=== PATIENT | female | born 1965 | race Caucasian/White ===

== ENCOUNTER 2017-03-09 20:01 | Emergency (ER) | payer MEDICAID ==
[2017-03-09 20:12] VITALS: BP 112/90
[2017-03-09] MEDS ORDERED: Levofloxacin 250 MG Tab PO ONE (20:32)
--- NOTE | 2017-03-09 20:37 | EDM.PDOC ---
[id number]: POSS UTI OR STONE Time Seen by Provider: 03/09/17 20:21 Source of Information: Reports: Patient History Limitations: Reports: No Limitations - History of Present Illness INITIAL COMMENTS - FREE TEXT/NARRATIVE: 52 y/o F with hx renal cancer s/p L nephrectomy and also hx UTI's presents with dysuria x 1-2 days. States she always has hematuria, no change. No fever. No flank pain. No vomiting or abdominal pain. Has frequency and urgency. No unusual vaginal discharge. NO additional complaint. Last UTI was a year ago. Bladder Pain Score (Numeric/FACES): 9 - Related Data Allergies Allergy/AdvReac Type Severity Reaction Status Date / Time morphine Allergy Other Verified 08/20/15 00:12 acetaminophen [From Percocet] AdvReac Nausea Verified 08/20/15 00:12 hydrochlorothiazide AdvReac Nausea Verified 08/20/15 00:12 oxycodone HCl [From Percocet] AdvReac Nausea Verified 08/20/15 00:12 Sulfa (Sulfonamide AdvReac Mouth Sores Verified 08/20/15 00:12 Antibiotics) varenicline tartrate AdvReac Change Verified 11/05/15 20:09 [From Chantix] Mental Status Home Meds: Home Meds Acetaminophen [Tylenol Arthritis Pain] 650 mg PO BID 11/05/15 [History] Amitriptyline [Elavil] 50 mg PO BEDTIME 11/05/15 [History] Atenolol 25 mg PO QPM 11/05/15 [History] LORazepam [Ativan] 1 mg PO BEDTIME 11/05/15 [History] Nitroglycerin [Nitrostat] 0.4 mg SL ASDIRECTED 11/05/15 [History] Topiramate [Topamax] 50 mg PO DAILY 11/05/15 [History] Topiramate [Topamax] 100 mg PO BEDTIME 11/05/15 [History] Venlafaxine [Effexor] 300 mg PO BEDTIME 11/05/15 [History] atorvaSTATin [Lipitor] 40 mg PO BEDTIME 11/05/15 [History] Albuterol [Ventolin HFA] 8 gm INH Q4H PRN 11/06/15 [History] Aspirin [Ecotrin] 81 mg PO DAILY 11/06/15 [History] Budesonide/Formoterol [Symbicort 80-4.5 MCG] 2 puff INH BID 11/06/15 [History] Ciprofloxacin HCl/Dexameth [Ciprodex Otic Suspension] 5 drop TOP BID 11/06/15 [ History] Cyanocobalamin (Vitamin B-12) [B-12] 1,000 mcg PO DAILY 11/06/15 [History] Diclofenac Sodium [Voltaren 1% Gel] 1 dose TOP BID 11/06/15 [History] Ezetimibe [Zetia] 10 mg PO DAILY 11/06/15 [History] Fluticasone Propionate [Flonase Allergy Relief] 2 sprays NASBOTH BID 11/06/15 [ History] Linaclotide [Linzess] 145 mcg PO DAILY 11/06/15 [History] Lisinopril 10 mg PO BEDTIME 11/06/15 [History] Mupirocin Oint [Bactroban Oint] 1 unit TOP TID 11/06/15 [History] Omeprazole 40 mg PO BEDTIME 11/06/15 [History] Tiotropium [Spiriva HandiHaler] 18 mcg INH DAILY 11/06/15 [History] guaiFEN/Phenyleph/Acetaminophn [Mucinex Sinus-Max Severe Cplt] 1 each PO BID [History] traZODone 75 mg PO BEDTIME 11/06/15 [History] Ciprofloxacin [Ciprofloxacin HCl] 250 mg PO BID #14 tablet 03/09/17 [Rx] Phenazopyridine [Pyridium] 100 mg PO TID PRN #9 tablet 03/09/17 [Rx] Past Medical History HEENT History: Reports: Sinusitis Other HEENT History: 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 Cardiovascular History: Reports: Hypertension Other Cardiovascular History: mitral valve prolapse Respiratory History: Reports: Bronchitis, Recurrent, COPD Other Respiratory History: current smoker 2ppd Gastrointestinal History: Reports: Colon Polyp, GERD, Other (See Below) Other Gastrointestinal History: Barretts esophogus Genitourinary History: Reports: Other (See Below) Other Genitourinary History: renal insuffiency [employer] History: Reports: Musculoskeletal History: Reports: Osteoarthritis Psychiatric History: Reports: Bipolar Other Psychiatric History: disassociate disorder Endocrine/Metabolic History: Reports: Vitamin D Deficiency Other Oncologic History: clear cell carcinoma of the left kidney - Infectious Disease History Infectious Disease History: Reports: Chicken Pox - Past Surgical History HEENT Surgical History: Reports: Naso-Sinus Surgery, Other (See Below) Female Surgical History: Reports: Cervical Conization, Cervical Cryotherapy, Hysterectomy Social & Family History - Family History Family Medical History: Noncontributory HEENT: Reports: Cataract Cardiac: Reports: Other (See Below) Other Cardiac Family History: several with heart attachs, one with mitral valve replacement and pacemaker Respiratory: Reports: Other (See Below) Other Respiratory Family Hisory: emphysema GI: Reports: None Musculoskeletal: Reports: Gout Neurological: Reports: Dementia Psychiatric: Reports: ADHD, Bipolar Endocrine/Metabolic: Reports: Diabetes, type II, Hyperthyroidism Oncologic: Reports: Other (See Below) Other Oncologic Family History: pt states several family members have had cancer unsure of what kind - Tobacco Use Smoking Status *Q: Current Every Day Smoker Years of Tobacco use: 35 Packs/Tins Daily: 2 Second Hand Smoke Exposure: Yes - Caffeine Use Caffeine Use: Reports: Coffee, Soda - Recreational Drug Use Recreational Drug Use: No ED ROS GENERAL - Review of Systems Review Of Systems: See Below Constitutional: Denies: Fever Respiratory: Reports: No Symptoms Cardiovascular: Reports: No Symptoms GI/Abdominal: Denies: Abdominal Pain : Reports: Dysuria. Denies: Flank Pain ED EXAM, RENAL/ - Physical Exam Exam: See Below Exam Limited By: No Limitations General Appearance: Alert, WD/WN, No Apparent Distress Throat/Mouth: Normal Voice Head: Atraumatic, Normocephalic Neck: Normal Inspection, Supple Respiratory/Chest: No Respiratory Distress GI/Abdominal: Soft, Non-Tender, No Distention. No: Rebound Back Exam: No: CVA Tenderness (L), CVA Tenderness (R) Neurological: Alert, Oriented, Normal Cognition Psychiatric: Normal Affect, Normal Mood Skin Exam: Warm, Dry, Intact, Normal Color Course - Vital Signs Last Recorded V/S: Last Vital Signs Temp 36.2 C 03/09/17 20:11 Pulse 84 03/09/17 20:11 Resp 20 03/09/17 20:11 BP 112/90 03/09/17 20:11 Pulse Ox 96 03/09/17 20:11 - Orders/Labs/Meds Orders: Active Orders 24 hr Category Date Time Status UA W/MICROSCOPIC [URIN] Stat Lab 03/09/17 20:30 Ordered Phenazopyridine [Urinary Pain Relief] Med 03/10/17 20:34 Once 95 mg PO STAT ONE Medication Orders Phenazopyridine HCl (Urinary Pain Relief) 95 mg PO STAT ONE Stop: 03/10/17 20:35 Meds: Medications Generic Name Dose Route Start Last Admin Trade Name Freq PRN Reason Stop Dose Admin Phenazopyridine HCl 95 mg 03/10/17 20:34 Urinary Pain Relief PO 03/10/17 20:35 STAT ONE Discontinued Medications Generic Name Dose Route Start Last Admin Trade Name Freq PRN Reason Stop Dose Admin Levofloxacin 750 mg 03/09/17 20:32 Levaquin PO 03/09/17 20:33 ONETIME ONE Departure - Departure Time of Disposition: 20:34 Disposition: Home, Self-Care 01 Clinical Impression: UTI, Urinary tract infectious disease - Discharge Information Prescriptions: Ciprofloxacin [Ciprofloxacin HCl] 250 mg PO BID #14 tablet Phenazopyridine [Pyridium] 100 mg PO TID PRN #9 tablet PRN Reason: urinary discomfort Instructions: Urinary Tract Infection, Adult, [id number] Referrals: Marianne France MD [Primary Care Provider] - Forms: ED Department Discharge Additional Instructions: 1. Take ciprofloxacin as prescribed. Next dose should be tomorrow evening - we gave you a dose of levaquin, a related antibiotic, that will last for 24 hours 2. Take pyridium as needed for urinary discomfort 3. Follow up with your primary doctor this week if not improving 4. Return to the ED if you have fever, flank pain, vomiting, abdominal pain, or any other concerning symptoms - My Orders Last 24 Hours: My Active Orders 03/09/17 20:30 UA W/MICROSCOPIC [URIN] Stat 03/10/17 20:34 Phenazopyridine [Urinary Pain Relief] 95 mg PO STAT ONE - Assessment/Plan Last 24 Hours: My Active Orders 03/09/17 20:30 UA W/MICROSCOPIC [URIN] Stat 03/10/17 20:34 Phenazopyridine [Urinary Pain Relief] 95 mg PO STAT ONE
[2017-03-09] MEDS ORDERED: Phenazopyridine 95 MG Tab ONE (20:47)
[2017-03-10] MEDS ORDERED: Phenazopyridine 95 MG Tab PO ONE (20:34)
== END 2017-03-09 20:51 | disposition home or self-care (01) ==
LOC: JD.ED 20:01
DX: N39.0 Urinary tract infection, site not specified (principal); I10 Essential (primary) hypertension; M19.90 Unspecified osteoarthritis, unspecified site; K21.9 Gastro-esophageal reflux disease without esophagitis; F17.210 Nicotine dependence, cigarettes, uncomplicated; Z85.528 Personal history of other malignant neoplasm of kidney; Z90.710 Acquired absence of both cervix and uterus; Z98.890 Other specified postprocedural states; Z79.82 Long term (current) use of aspirin; Z79.899 Other long term (current) drug therapy; Z88.2 Allergy status to sulfonamides; Z88.5 Allergy status to narcotic agent; Z88.6 Allergy status to analgesic agent; Z88.8 Allergy status to other drugs, medicaments and biological substances
CPT/HCPCS: 81001; 99283; A9270

== ENCOUNTER 2018-08-30 17:08 | Emergency (ER) | payer MEDICAID ==
[2018-08-30 17:24] VITALS: BP 138/81
[2018-08-30] MEDS ORDERED: Acetaminophen/HYDROcodone 325-5 MG Tab PO ONE (17:33)
[2018-08-30] MEDS ORDERED: Amoxicillin 500 MG Cap PO ONE (18:13)
--- NOTE | 2018-08-30 18:17 | EDM.PDOC ---
ED HPI GENERAL MEDICAL PROBLEM - General Chief Complaint: ENT Problem Stated Complaint: DENTAL COMPLAINT Time Seen by Provider: 08/30/18 17:26 Source of Information: Reports: Patient, RN Notes Reviewed - History of Present Illness INITIAL COMMENTS - FREE TEXT/NARRATIVE: 53-year-old lady comes in with severe dental pain. States that her left upper premolars have been giving her trouble for a long time but have become much more painful the last few days. Last night in particular was very bad. She's been taking Tylenol but not getting good relief. She only has one kidney so has been advised not to take anti-inflammatories. Her appointment for dental care is a ways off. No fever chills or visible swelling. Left Upper Oral/Mouth Pain Score (Numeric/FACES): 9 - Related Data Allergies Allergy/AdvReac Type Severity Reaction Status Date / Time morphine Allergy Other Verified 08/30/18 17:15 acetaminophen [From Percocet] AdvReac Nausea Verified 08/30/18 17:15 hydrochlorothiazide AdvReac Nausea Verified 08/30/18 17:15 oxycodone HCl [From Percocet] AdvReac Nausea Verified 08/30/18 17:15 Sulfa (Sulfonamide AdvReac Mouth Sores Verified 08/30/18 17:15 Antibiotics) varenicline tartrate AdvReac Change Verified 08/30/18 17:15 [From Chantix] Mental Status Home Meds: Home Meds Acetaminophen [Tylenol Arthritis Pain] 650 mg PO BID 11/05/15 [History] Amitriptyline [Elavil] 50 mg PO BEDTIME 11/05/15 [History] Atenolol 25 mg PO QPM 11/05/15 [History] LORazepam [Ativan] 1 mg PO BEDTIME 11/05/15 [History] Nitroglycerin [Nitrostat] 0.4 mg SL ASDIRECTED 11/05/15 [History] Topiramate [Topamax] 50 mg PO DAILY 11/05/15 [History] Topiramate [Topamax] 100 mg PO BEDTIME 11/05/15 [History] atorvaSTATin [Lipitor] 40 mg PO BEDTIME 11/05/15 [History] Albuterol [Ventolin HFA] 8 gm INH Q4H PRN 11/06/15 [History] Aspirin [Ecotrin] 81 mg PO DAILY 11/06/15 [History] Budesonide/Formoterol [Symbicort 80-4.5 MCG] 2 puff INH BID 11/06/15 [History] Ciprofloxacin HCl/Dexameth [Ciprodex Otic Suspension] 5 drop TOP BID 11/06/15 [ History] Cyanocobalamin (Vitamin B-12) [B-12] 1,000 mcg PO DAILY 11/06/15 [History] Diclofenac Sodium [Voltaren 1% Gel] 1 dose TOP BID 11/06/15 [History] Ezetimibe [Zetia] 10 mg PO DAILY 11/06/15 [History] Fluticasone Propionate [Flonase Allergy Relief] 2 sprays NASBOTH BID 11/06/15 [ History] Linaclotide [Linzess] 145 mcg PO DAILY 11/06/15 [History] Lisinopril 10 mg PO BEDTIME 11/06/15 [History] Mupirocin Oint [Bactroban Oint] 1 unit TOP TID 11/06/15 [History] Omeprazole 40 mg PO BEDTIME 11/06/15 [History] Tiotropium [Spiriva HandiHaler] 18 mcg INH DAILY 11/06/15 [History] guaiFEN/Phenyleph/Acetaminophn [Mucinex Sinus-Max Severe Cplt] 1 each PO BID [History] traZODone 75 mg PO BEDTIME 11/06/15 [History] Ciprofloxacin [Ciprofloxacin HCl] 250 mg PO BID #14 tablet 03/09/17 [Rx] Hydrocodone/Acetaminophen [[place] 5-325 Tablet] 1 each PO Q8HR PRN #14 tablet 08/06 [Rx] Past Medical History HEENT History: Reports: Sinusitis Other HEENT History: 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 Cardiovascular History: Reports: Hypertension Other Cardiovascular History: mitral valve prolapse Respiratory History: Reports: Bronchitis, Recurrent, COPD Other Respiratory History: current smoker 2ppd Gastrointestinal History: Reports: Colon Polyp, GERD, Other (See Below) Other Gastrointestinal History: Barretts esophogus Genitourinary History: Reports: Other (See Below) Other Genitourinary History: renal insuffiency [employer] History: Reports: Musculoskeletal History: Reports: Osteoarthritis Psychiatric History: Reports: Bipolar Other Psychiatric History: disassociate disorder Endocrine/Metabolic History: Reports: Vitamin D Deficiency Other Oncologic History: clear cell carcinoma of the left kidney - Infectious Disease History Infectious Disease History: Reports: Chicken Pox - Past Surgical History HEENT Surgical History: Reports: Naso-Sinus Surgery, Other (See Below) Female Surgical History: Reports: Cervical Conization, Cervical Cryotherapy, Hysterectomy Social & Family History - Family History Family Medical History: Noncontributory HEENT: Reports: Cataract Cardiac: Reports: Other (See Below) Other Cardiac Family History: several with heart attachs, one with mitral valve replacement and pacemaker Respiratory: Reports: Other (See Below) Other Respiratory Family Hisory: emphysema GI: Reports: None Musculoskeletal: Reports: Gout Neurological: Reports: Dementia Psychiatric: Reports: ADHD, Bipolar Endocrine/Metabolic: Reports: Diabetes, type II, Hyperthyroidism Oncologic: Reports: Other (See Below) Other Oncologic Family History: pt states several family members have had cancer unsure of what kind - Tobacco Use Smoking Status *Q: Current Every Day Smoker Years of Tobacco use: 30 Packs/Tins Daily: 1 - Caffeine Use Caffeine Use: Reports: Coffee - Recreational Drug Use Recreational Drug Use: No ED ROS ENT - Review of Systems Review Of Systems: See Below Constitutional: Denies: Fever, Chills HEENT: Reports: Dental Pain Respiratory: Denies: Shortness of Breath Cardiovascular: Denies: Chest Pain GI/Abdominal: Denies: Abdominal Pain, Nausea, Vomiting Musculoskeletal: Reports: No Symptoms Skin: Denies: Erythema ED EXAM, ENT - Physical Exam Exam: See Below General Appearance: Alert, Moderate Distress Eye Exam: Bilateral Eye: PERRL Mouth/Throat: Dental Pain (Left upper premolars, no visible gloom swelling) Head: Facial Tenderness (Left-sided). No: Facial Swelling Respiratory/Chest: No Respiratory Distress, Lungs Clear Cardiovascular: Regular Rate, Rhythm Neurological: Alert, Oriented, No Motor/Sensory Deficits Skin: Warm, Dry, Normal Color Course - Vital Signs Last Recorded V/S: Last Vital Signs Temp 99 F 08/30/18 17:15 Pulse 95 08/30/18 17:15 Resp 13 08/30/18 17:15 BP 138/81 08/30/18 17:15 Pulse Ox 96 08/30/18 17:15 - Orders/Labs/Meds Meds: Medications Discontinued Medications Generic Name Dose Route Start Last Admin Trade Name Freq PRN Reason Stop Dose Admin Hydrocodone Bitart/Acetaminophen 1 tab 08/30/18 17:33 08/30/18 17:41 [place] 325-5 Mg PO 08/30/18 17:34 1 tab ONETIME ONE Administration Amoxicillin 1,000 mg 08/30/18 18:13 08/30/18 18:16 Amoxil PO 08/30/18 18:14 1,000 mg ONETIME ONE Administration Departure - Departure Time of Disposition: 18:12 Disposition: Home, Self-Care 01 Condition: Fair Clinical Impression: Pain, dental - Discharge Information Prescriptions: Hydrocodone/Acetaminophen [[place] 5-325 Tablet] 1 each PO Q8HR PRN #14 tablet PRN Reason: Pain Instructions: Dental Implant Surgery, Care After Referrals: Marianne France MD [Primary Care Provider] - Forms: ED Department Discharge Additional Instructions: tylenol every 6-8 hours if and when needed for mild to moderate discomfort or hydrocodone if needed for severe pain, especially at night to help you rest. Amoxicillin 1000 mg twice daily for 1 week. See dentist as planned.
== END 2018-08-30 18:24 | disposition home or self-care (01) ==
LOC: JD.ED 17:08
DX: K08.89 Other specified disorders of teeth and supporting structures (principal); F17.210 Nicotine dependence, cigarettes, uncomplicated; I10 Essential (primary) hypertension; K21.9 Gastro-esophageal reflux disease without esophagitis; F31.9 Bipolar disorder, unspecified; Z79.899 Other long term (current) drug therapy; Z79.82 Long term (current) use of aspirin; Z88.5 Allergy status to narcotic agent; Z88.6 Allergy status to analgesic agent; Z88.2 Allergy status to sulfonamides; Z88.8 Allergy status to other drugs, medicaments and biological substances
CPT/HCPCS: 99283; A9270

== ENCOUNTER 2018-10-16 12:55 | Emergency (ER) | payer MEDICAID ==
[2018-10-16] MEDS ORDERED: Sodium Chloride 0.9% 10 ML Syringe FLUSH PRN (13:24)
[2018-10-16] MEDS ORDERED: Ondansetron 4 MG/2 ML SDV IVPUSH ONE ×2 (13:24→15:05)
[2018-10-16] MEDS ORDERED: Sodium Chloride 0.9% 1,000 ML IV SCH (13:30)
--- NOTE | 2018-10-16 14:11 | EDM.PDOC ---
ED HPI GENERAL MEDICAL PROBLEM - General Chief Complaint: Gastrointestinal Problem Stated Complaint: vomiting,diahrrea, heart palpatations Time Seen by Provider: 10/16/18 13:10 Source of Information: Reports: Patient History Limitations: Reports: No Limitations - History of Present Illness INITIAL COMMENTS - FREE TEXT/NARRATIVE: The patient presents with nausea, vomiting and diarrhea. This started this morning and she cannot keep anything down. She also has some generalized abdominal pain. She has fever and chills. She has been having a cough for the past couple of days. She has no chest pain or shortness of breath. She still has her appendix and gallbladder. She did have a hysterectomy. She also says she was having some palpitations. She has a loop recorder on now. Her doctor is trying to find out what the palpitations are that she is having. Onset: Gradual Duration: Hour(s): Location: Reports: Abdomen Quality: Reports: Other (cramping) Severity: Moderate Improves with: Reports: None Worsens with: Reports: None Associated Symptoms: Reports: Nausea/Vomiting. Denies: Chest Pain, Cough, Fever /Chills, Headaches, Shortness of Breath Abdominal Pain Score (Numeric/FACES): 4 - Related Data Allergies Allergy/AdvReac Type Severity Reaction Status Date / Time morphine Allergy Other Verified 10/16/18 13:12 acetaminophen [From Percocet] AdvReac Nausea Verified 10/16/18 13:12 hydrochlorothiazide AdvReac Nausea Verified 10/16/18 13:12 oxycodone HCl [From Percocet] AdvReac Nausea Verified 10/16/18 13:12 Sulfa (Sulfonamide AdvReac Mouth Sores Verified 10/16/18 13:12 Antibiotics) varenicline tartrate AdvReac Change Verified 10/16/18 13:12 [From Chantix] Mental Status Home Meds: Home Meds Acetaminophen [Tylenol Arthritis Pain] 650 mg PO BID 11/05/15 [History] Amitriptyline [Elavil] 50 mg PO BEDTIME 11/05/15 [History] Atenolol 25 mg PO QPM 11/05/15 [History] LORazepam [Ativan] 1 mg PO BEDTIME 11/05/15 [History] Nitroglycerin [Nitrostat] 0.4 mg SL ASDIRECTED 11/05/15 [History] Topiramate [Topamax] 50 mg PO DAILY 11/05/15 [History] Topiramate [Topamax] 100 mg PO BEDTIME 11/05/15 [History] atorvaSTATin [Lipitor] 40 mg PO BEDTIME 11/05/15 [History] Albuterol [Ventolin HFA] 8 gm INH Q4H PRN 11/06/15 [History] Aspirin [Ecotrin] 81 mg PO DAILY 11/06/15 [History] Budesonide/Formoterol [Symbicort 80-4.5 MCG] 2 puff INH BID 11/06/15 [History] Ciprofloxacin HCl/Dexameth [Ciprodex Otic Suspension] 5 drop TOP BID 11/06/15 [ History] Cyanocobalamin (Vitamin B-12) [B-12] 1,000 mcg PO DAILY 11/06/15 [History] Diclofenac Sodium [Voltaren 1% Gel] 1 dose TOP BID 11/06/15 [History] Ezetimibe [Zetia] 10 mg PO DAILY 11/06/15 [History] Fluticasone Propionate [Flonase Allergy Relief] 2 sprays NASBOTH BID 11/06/15 [ History] Linaclotide [Linzess] 145 mcg PO DAILY 11/06/15 [History] Lisinopril 10 mg PO BEDTIME 11/06/15 [History] Mupirocin Oint [Bactroban Oint] 1 unit TOP TID 11/06/15 [History] Omeprazole 40 mg PO BEDTIME 11/06/15 [History] Tiotropium [Spiriva HandiHaler] 18 mcg INH DAILY 11/06/15 [History] guaiFEN/Phenyleph/Acetaminophn [Mucinex Sinus-Max Severe Cplt] 1 each PO BID [History] traZODone 75 mg PO BEDTIME 11/06/15 [History] Ciprofloxacin [Ciprofloxacin HCl] 250 mg PO BID #14 tablet 03/09/17 [Rx] Hydrocodone/Acetaminophen [[place] 5-325 Tablet] 1 each PO Q8HR PRN #14 tablet 08/06 [Rx] Ondansetron [Zofran ODT] 4 mg PO Q6H PRN #20 tab.dis 10/16/18 [Rx] Ondansetron [Zofran ODT] 4 mg PO Q6H PRN #20 tab.dis 10/16/18 [Rx] Past Medical History HEENT History: Reports: Sinusitis Other HEENT History: 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 Cardiovascular History: Reports: Hypertension Other Cardiovascular History: mitral valve prolapse Respiratory History: Reports: Bronchitis, Recurrent, COPD Other Respiratory History: current smoker 2ppd Gastrointestinal History: Reports: Colon Polyp, GERD, Other (See Below) Other Gastrointestinal History: Barretts esophogus Genitourinary History: Reports: Other (See Below) Other Genitourinary History: renal insuffiency [employer] History: Reports: Musculoskeletal History: Reports: Osteoarthritis Psychiatric History: Reports: Bipolar Other Psychiatric History: disassociate disorder Endocrine/Metabolic History: Reports: Vitamin D Deficiency Other Oncologic History: clear cell carcinoma of the left kidney - Infectious Disease History Infectious Disease History: Reports: Chicken Pox - Past Surgical History HEENT Surgical History: Reports: Naso-Sinus Surgery, Other (See Below) Female Surgical History: Reports: Cervical Conization, Cervical Cryotherapy, Hysterectomy Social & Family History - Family History Family Medical History: Noncontributory HEENT: Reports: Cataract Cardiac: Reports: Other (See Below) Other Cardiac Family History: several with heart attachs, one with mitral valve replacement and pacemaker Respiratory: Reports: Other (See Below) Other Respiratory Family Hisory: emphysema GI: Reports: None Musculoskeletal: Reports: Gout Neurological: Reports: Dementia Psychiatric: Reports: ADHD, Bipolar Endocrine/Metabolic: Reports: Diabetes, type II, Hyperthyroidism Oncologic: Reports: Other (See Below) Other Oncologic Family History: pt states several family members have had cancer unsure of what kind - Tobacco Use Smoking Status *Q: Current Every Day Smoker Years of Tobacco use: 35 Packs/Tins Daily: 0.5 - Caffeine Use Caffeine Use: Reports: Coffee - Recreational Drug Use Recreational Drug Use: No ED ROS GENERAL - Review of Systems Review Of Systems: See Below Constitutional: Reports: Fever, Chills HEENT: Reports: No Symptoms Respiratory: Reports: No Symptoms Cardiovascular: Reports: No Symptoms Endocrine: Reports: No Symptoms GI/Abdominal: Reports: Abdominal Pain, Diarrhea, Nausea, Vomiting : Reports: No Symptoms Musculoskeletal: Reports: No Symptoms Skin: Reports: No Symptoms ED EXAM, GI/ABD - Physical Exam Exam: See Below Exam Limited By: No Limitations General Appearance: Alert, No Apparent Distress Ears: Normal External Exam Nose: Normal Inspection Head: Atraumatic, Normocephalic Neck: Normal Inspection Respiratory/Chest: No Respiratory Distress, Lungs Clear, Normal Breath Sounds Cardiovascular: Regular Rate, Rhythm, No Edema, No Murmur GI/Abdominal Exam: Soft, Non-Tender, No Organomegaly, No Mass Extremities: Normal Inspection Neurological: Alert, Oriented, No Motor/Sensory Deficits EKG INTERPRETATION EKG Date: 10/16/18 Time: 13:57 Rhythm: NSR Rate (Beats/Min): 98 [place]: Normal P-Wave: Present QRS: Normal ST-T: Other (flattened T waves in the anterior leads) QT: Normal Course - Vital Signs Last Recorded V/S: Last Vital Signs Temp 96.9 F 10/16/18 13:09 Pulse 107 H 10/16/18 13:09 Resp 18 10/16/18 13:09 BP 129/75 10/16/18 13:09 Pulse Ox 96 10/16/18 13:09 - Orders/Labs/Meds Orders: Active Orders 24 hr Category Date Time Status EKG Documentation Completion [RC] ASDIRECTED Care 10/16/18 13:26 Active Peripheral IV Care [RC] . DIRECTED Care 10/16/18 13:25 Active Sodium Chloride 0.9% [Normal Saline] 1,000 ml Med 10/16/18 13:30 Active IV .BOLUS Sodium Chloride 0.9% [Saline Flush] Med 10/16/18 13:24 Active 10 ml FLUSH ASDIRECTED PRN ED Antiemetic Medication Reflex [OM.PC] Click To Edit Oth 10/16/18 13:24 Ordered Peripheral IV Insertion Adult [OM.PC] Urgent Oth 10/16/18 13:24 Ordered EKG 12 Lead [EK] Stat Ther 10/16/18 13:25 Ordered Medication Orders Sodium Chloride (Normal Saline) 1,000 mls @ 1,000 mls/hr IV .BOLUS BISHNU Last Admin: 10/16/18 13:43 Dose: 1,000 mls/hr Sodium Chloride (Saline Flush) 10 ml FLUSH ASDIRECTED PRN PRN Reason: Keep Vein Open Last Admin: 10/16/18 13:50 Dose: 10 ml Labs: Laboratory Tests 10/16/18 10/16/18 10/16/18 Range/Units 13:40 13:40 14:05 WBC 9.21 (3.98-10.04) K/mm3 RBC 5.86 H (3.98-5.22) M/mm3 Hgb 17.9 H (11.2-15.7) gm/L Hct 52.0 H (34.1-44.9) % MCV 88.7 (79.4-94.8) fl MCH 30.5 (25.6-32.2) pg MCHC 34.4 (32.2-35.5) g/dl RDW Std Deviation 46.9 H (36.4-46.3) fL Plt Count 134 L (182-369) K/mm3 MPV 11.3 (9.4-12.3) fl Sodium 140 (136-145) mEq/L Potassium 4.3 (3.5-5.1) mEq/L Chloride 104 (98-107) mEq/L Carbon Dioxide 22 (21-32) mEq/L Anion Gap 18.3 H (5-15) BUN 20 H (7-18) mg/dL Creatinine 1.5 H (0.55-1.02) mg/dL Est Cr Clr Drug Dosing 42.47 mL/min Estimated GFR (MDRD) 36 (>60) mL/min BUN/Creatinine Ratio 13.3 L (14-18) Glucose 147 H (74-106) mg/dL Calcium 9.8 (8.5-10.1) mg/dL Total Bilirubin 0.8 (0.2-1.0) mg/dL AST 20 (15-37) U/L ALT 41 (14-59) U/L Alkaline Phosphatase 81 (46-116) U/L Total Protein 8.5 H (6.4-8.2) g/dl Albumin 4.4 (3.4-5.0) g/dl Globulin 4.1 gm/dL Albumin/Globulin Ratio 1.1 (1-2) Lipase 119 (73-393) U/L Urine Color Dark yellow (Yellow) Urine Appearance Slt cloudy H (Clear) Urine pH 5.5 (5.0-8.0) Ur Specific [place] > or = 1.030 (1.005-1.030) Urine Protein 3+ H (Negative) Urine Glucose (UA) Negative (Negative) Urine Ketones Trace H (Negative) Urine Occult Blood 3+ H (Negative) Urine Nitrite Negative (Negative) Urine Bilirubin 2+ H (Negative) Urine Urobilinogen 0.2 (0.2-1.0) Ur Leukocyte Esterase Negative (Negative) Urine RBC 20-30 H (0-5) /hpf Urine WBC 0-5 (0-5) /hpf Ur Epithelial Cells 5-10 H (0-5) /hpf Urine Bacteria Moderate H (FEW) /hpf Fine Granular Casts 10-20 H (0-5) /lpf Urine Mucus Moderate H (FEW) /hpf Meds: Medications Generic Name Dose Route Start Last Admin Trade Name Freq PRN Reason Stop Dose Admin Sodium Chloride 1,000 mls @ 1,000 mls/hr 10/16/18 13:30 10/16/18 13:43 Normal Saline IV 1,000 mls/hr .BOLUS BISHNU Administration Sodium Chloride 10 ml 10/16/18 13:24 10/16/18 13:50 Saline Flush FLUSH 10 ml ASDIRECTED PRN Administration Keep Vein Open Discontinued Medications Generic Name Dose Route Start Last Admin Trade Name Freq PRN Reason Stop Dose Admin Sodium Chloride 1,000 mls @ 1,000 mls/hr 10/16/18 14:40 10/16/18 15:01 Normal Saline IV 10/16/18 15:39 1,000 mls/hr ONETIME ONE Administration Ondansetron HCl 4 mg 10/16/18 13:24 10/16/18 13:43 Zofran IVPUSH 10/16/18 13:25 4 mg ONETIME ONE Administration Ondansetron HCl 4 mg 10/16/18 15:05 10/16/18 15:10 Zofran IVPUSH 10/16/18 15:06 4 mg ONETIME ONE Administration - Re-Assessments/Exams Free Text/Narrative Re-Assessment/Exam: 10/16/18 14:14 I ordered an IV NS 1L bolus, zofran 4mg IV, labs, and UA. 10/16/18 14:20 Her WBC is normal. Her Hgb was elevated at 17.9. Her platelets were a little low at 134. Her creatinine was elevated at 1.5. Her GFR was low at 36. Her creatinine was 1.3 and GFR was 43 in January. She says her creatinine is 1 now. Her GFR is much better then that. Her glucose was elevated at 147. Her lipase was negative. 10/16/18 15:51 I ordered another liter of fluid. I called Dr Aviles and he was okay with her labs and her going home if she can keep down oral fluids. She can and she is willing to go home. Someone from Dr Aviles's office will call her tomorrow. Departure - Departure Time of Disposition: 16:05 Disposition: Home, Self-Care 01 Condition: Good Clinical Impression: Gastroenteritis, Dehydration, Kidney disease - Discharge Information *PRESCRIPTION DRUG MONITORING PROGRAM REVIEWED*: Not Applicable *COPY OF PRESCRIPTION DRUG MONITORING REPORT IN PATIENT EUGENE: Not Applicable Prescriptions: Ondansetron [Zofran ODT] 4 mg PO Q6H PRN #20 tab.dis PRN Reason: Nausea\vomiting Ondansetron [Zofran ODT] 4 mg PO Q6H PRN #20 tab.dis PRN Reason: Nausea\vomiting Referrals: Marianne France MD [Primary Care Provider] - Forms: ED Department Discharge Additional Instructions: Drink plenty of fluids. Take your medication as prescribed. Take the zofran every 6 hours as needed for nausea and vomiting. Someone from Dr Ferrer's office will call you. If you do not hear from him by early afternoon, try to call his office. Please return if you are worse. - My Orders Last 24 Hours: My Active Orders 10/16/18 13:24 Sodium Chloride 0.9% [Saline Flush] 10 ml FLUSH ASDIRECTED PRN ED Antiemetic Medication Reflex [OM.PC] Click To Edit Peripheral IV Insertion Adult [OM.PC] Urgent 10/16/18 13:25 Peripheral IV Care [RC] . DIRECTED EKG 12 Lead [EK] Stat 10/16/18 13:26 EKG Documentation Completion [RC] ASDIRECTED 10/16/18 13:30 Sodium Chloride 0.9% [Normal Saline] 1,000 ml IV .BOLUS - Assessment/Plan Last 24 Hours: My Active Orders 10/16/18 13:24 Sodium Chloride 0.9% [Saline Flush] 10 ml FLUSH ASDIRECTED PRN ED Antiemetic Medication Reflex [OM.PC] Click To Edit Peripheral IV Insertion Adult [OM.PC] Urgent 10/16/18 13:25 Peripheral IV Care [RC] . DIRECTED EKG 12 Lead [EK] Stat 10/16/18 13:26 EKG Documentation Completion [RC] ASDIRECTED 10/16/18 13:30 Sodium Chloride 0.9% [Normal Saline] 1,000 ml IV .BOLUS
[2018-10-16] MEDS ORDERED: Sodium Chloride 0.9% 1,000 ML IV ONE (14:40)
[2018-10-16 16:50] VITALS: BP 122/87
== END 2018-10-16 16:53 | disposition home or self-care (01) ==
LOC: JD.ED 12:55
DX: K52.9 Noninfective gastroenteritis and colitis, unspecified (principal); N28.9 Disorder of kidney and ureter, unspecified; I10 Essential (primary) hypertension; K21.9 Gastro-esophageal reflux disease without esophagitis; J44.9 Chronic obstructive pulmonary disease, unspecified; Z79.899 Other long term (current) drug therapy; Z88.2 Allergy status to sulfonamides; Z88.6 Allergy status to analgesic agent; Z88.8 Allergy status to other drugs, medicaments and biological substances
CPT/HCPCS: 36415; 80053; 81001; 83690; 85027; 93005; 96361; 96374; 96376; 99285; J2405; J7040

== ENCOUNTER 2020-07-08 19:49 | Emergency (ER) | payer SELFPAY ==
[2020-07-08 20:07] VITALS: BP 121/80; PULSE 78
--- NOTE | 2020-07-08 20:56 | EDM.PDOC ---
ED HPI GENERAL MEDICAL PROBLEM - General Chief Complaint: Upper Extremity Injury/Pain Stated Complaint: arm pain Time Seen by Provider: 07/08/20 19:51 Source of Information: Reports: Patient, RN Notes Reviewed History Limitations: Reports: No Limitations - History of Present Illness INITIAL COMMENTS - FREE TEXT/NARRATIVE: Patient is a 55-year-old female presenting to the emergency department with complaints of left arm and shoulder pain. Symptoms began earlier this morning. States she awoke from a nap and it was quite more intense. She does have problems with chronic shoulder pain which makes it difficult for her to lift her arms over her head. Injured in any way that she can think. She has been doing quite a bit of sewing lately. She states she does not use her left arm much to do that. Denies any significant chest pain. Denies shortness of breath. Patient states that she does not have any history of [facility]. She has a loop recorder in because she states she occasionally gets a sensation like she has "hummingbird "in her chest. When asked if she has had A. fib. 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 Left Upper Arm Pain Score (Numeric/FACES): 8 - Related Data Allergies Allergy/AdvReac Type Severity Reaction Status Date / Time morphine Allergy Other Verified 07/08/20 20:07 hydrochlorothiazide AdvReac Nausea Verified 07/08/20 20:07 oxycodone HCl [From Percocet] AdvReac Nausea Verified 07/08/20 20:07 Sulfa (Sulfonamide AdvReac Mouth Sores Verified 07/08/20 20:07 Antibiotics) varenicline tartrate AdvReac Change Verified 07/08/20 20:07 [From Chantix] Mental Status Home Meds: Home Meds Acetaminophen [Tylenol Arthritis Pain] 650 mg PO BID 11/05/15 [History] Amitriptyline [Elavil] 50 mg PO BEDTIME 11/05/15 [History] LORazepam [Ativan] 1 mg PO BEDTIME 11/05/15 [History] Nitroglycerin [Nitrostat] 0.4 mg SL ASDIRECTED 11/05/15 [History] Topiramate [Topamax] 50 mg PO DAILY 11/05/15 [History] Topiramate [Topamax] 100 mg PO BEDTIME 11/05/15 [History] atenoloL [Atenolol] 25 mg PO QPM 11/05/15 [History] atorvaSTATin [Lipitor] 40 mg PO BEDTIME 11/05/15 [History] Albuterol [Ventolin HFA] 8 gm INH Q4H PRN 11/06/15 [History] Aspirin [Ecotrin EC] 81 mg PO DAILY 11/06/15 [History] Budesonide/Formoterol [Symbicort 80-4.5 MCG] 2 puff INH BID 11/06/15 [History] Ciprofloxacin HCl/Dexameth [Ciprodex Otic Suspension] 5 drop TOP BID 11/06/15 [History] Cyanocobalamin (Vitamin B-12) [B-12] 1,000 mcg PO DAILY 11/06/15 [History] Diclofenac Sodium [Voltaren 1% Gel] 1 dose TOP BID 11/06/15 [History] Ezetimibe [Zetia] 10 mg PO DAILY 11/06/15 [History] Fluticasone Propionate [Flonase Allergy Relief] 2 sprays NASBOTH BID 11/06/15 [History] Linaclotide [Linzess] 145 mcg PO DAILY 11/06/15 [History] Lisinopril 10 mg PO BEDTIME 11/06/15 [History] Mupirocin Oint [Bactroban Oint] 1 unit TOP TID 11/06/15 [History] Omeprazole 40 mg PO BEDTIME 11/06/15 [History] Tiotropium [Spiriva HandiHaler] 18 mcg INH DAILY 11/06/15 [History] guaiFEN/Phenyleph/Acetaminophn [Mucinex Sinus-Max Severe Cplt] 1 each PO BID 11/06/15 [History] traZODone 75 mg PO BEDTIME 11/06/15 [History] Ciprofloxacin [Ciprofloxacin HCl] 250 mg PO BID #14 tablet 03/09/17 [Rx] Hydrocodone/Acetaminophen [[place] 5-325 Tablet] 1 each PO Q8HR PRN #14 tablet 08/30/18 [Rx] Ondansetron [Zofran ODT] 4 mg PO Q6H PRN #20 tab.dis 10/16/18 [Rx] Ondansetron [Zofran ODT] 4 mg PO Q6H PRN #20 tab.dis 10/16/18 [Rx] Past Medical History HEENT History: Reports: Sinusitis Other HEENT History: 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 Cardiovascular History: Reports: High Cholesterol, Hypertension Other Cardiovascular History: mitral valve prolapse Respiratory History: Reports: Bronchitis, Recurrent, COPD Other Respiratory History: current smoker 2ppd Gastrointestinal History: Reports: Colon Polyp, GERD, Other (See Below) Other Gastrointestinal History: Barretts esophogus Genitourinary History: Reports: Other (See Below) Other Genitourinary History: renal insuffiency, she states she only has one kidney. 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 - Infectious Disease History Infectious Disease History: Reports: Chicken Pox - Past Surgical History HEENT Surgical History: Reports: Naso-Sinus Surgery, Other (See Below) Other HEENT Surgeries/Procedures: ear surgery x 3 Cardiovascular Surgical History: Reports: None Respiratory Surgical History: Reports: None GI Surgical History: Reports: None Female Surgical History: Reports: Cervical Conization, Cervical Cryotherapy, Hysterectomy Other Female Surgeries/Procedures: left nephrectomy Musculoskeletal Surgical History: Reports: None Social & Family History - Family History Family Medical History: No Pertinent Family History HEENT: Reports: Cataract Cardiac: Reports: Other (See Below) Other Cardiac Family History: several with heart attachs, one with mitral valve replacement and pacemaker Respiratory: Reports: Other (See Below) Other Respiratory Family Hisory: emphysema GI: Reports: None Musculoskeletal: Reports: Gout Neurological: Reports: Dementia Psychiatric: Reports: ADHD, Bipolar Endocrine/Metabolic: Reports: Diabetes, type II, Hyperthyroidism Oncologic: Reports: Other (See Below) Other Oncologic Family History: pt states several family members have had cancer unsure of what kind - Tobacco Use Tobacco Use Status *Q: Current Every Day Tobacco User Years of Tobacco use: 25 Packs/Tins Daily: 2 - Caffeine Use Caffeine Use: Reports: Coffee Review of Systems - Review of Systems Review Of Systems: See Below Constitutional: Reports: No Symptoms Eyes: Reports: No Symptoms Ears: Reports: No Symptoms Nose: Reports: No Symptoms Mouth/Throat: Reports: No Symptoms Respiratory: Reports: No Symptoms Cardiovascular: Reports: No Symptoms GI/Abdominal: Reports: No Symptoms Genitourinary: Reports: No Symptoms Musculoskeletal: Reports: Other (Left arm and shoulder pain) Skin: Reports: No Symptoms Neurological: Reports: No Symptoms Psychiatric: Reports: No Symptoms ED EXAM, GENERAL - Physical Exam Exam: See Below General Appearance: Alert, WD/WN, No Apparent Distress Respiratory/Chest: No Respiratory Distress, Lungs Clear, Normal Breath Sounds, No Accessory Muscle Use, Chest Non-Tender Cardiovascular: Normal Peripheral Pulses, Regular Rate, Rhythm, No Edema, No Gallop, No JVD, No Murmur, No Rub GI/Abdominal: Normal Bowel Sounds, Soft, Non-Tender, No Organomegaly, No Distention, No Abnormal Bruit, No Mass Extremities: Other (Tenderness to palpation to the left anterior and posterior shoulder as well as down her upper arm. No obvious deformity, redness, warmth, or swelling.) Neurological: Alert, Oriented, CN II-XII Intact, Normal Cognition, Normal Gait, Normal Reflexes, No Motor/Sensory Deficits Psychiatric: Normal Affect, Normal Mood Skin Exam: Warm, Dry, Intact, Normal Color, No Rash #1 Interpretation EKG Date: 07/08/20 Time: 20:30 Rhythm: NSR Rate (Beats/Min): 78 [place]: Normal P-Wave: Present QRS: Normal ST-T: Normal QT: Normal Course - Vital Signs Last Recorded V/S: Last Vital Signs Temp 97.8 F 07/08/20 20:03 Pulse 78 07/08/20 20:03 Resp 16 07/08/20 20:03 BP 121/80 07/08/20 20:03 Pulse Ox 99 07/08/20 20:03 - Orders/Labs/Meds Orders: Active Orders 24 hr Category Date Time Status Chest 2V [CR] Stat Exams 07/08/20 20:19 Taken Shoulder Comp Lt [CR] Stat Exams 07/08/20 20:20 Taken Labs: Laboratory Tests 07/08/20 07/08/20 07/08/20 Range/Units 20:50 20:50 20:50 WBC 6.91 (3.98-10.04) K/mm3 RBC 4.90 (3.98-5.22) M/mm3 Hgb 14.9 D (11.2-15.7) gm/dl Hct 46.4 H (34.1-44.9) % MCV 94.7 D (79.4-94.8) fl MCH 30.4 (25.6-32.2) pg MCHC 32.1 L (32.2-35.5) g/dl RDW Std Deviation 48.2 H (36.4-46.3) fL Plt Count 157 L (182-369) K/mm3 MPV 11.0 (9.4-12.3) fl Neut % (Auto) 61.9 (34.0-71.1) % Lymph % (Auto) 28.2 (19.3-51.7) % [place] % (Auto) 6.2 (4.7-12.5) % Eos % (Auto) 3.2 (0.7-5.8) Baso % (Auto) 0.4 (0.1-1.2) % Neut # (Auto) 4.27 (1.56-6.13) K/mm3 Lymph # (Auto) 1.95 (1.18-3.74) K/mm3 [place] # (Auto) 0.43 H (0.24-0.36) K/mm3 Eos # (Auto) 0.22 (0.04-0.36) K/mm3 Baso # (Auto) 0.03 (0.01-0.08) K/mm3 D-Dimer, Quantitative 0.32 (0.19-0.50) mg/L Sodium 140 (136-145) mEq/L Potassium 4.3 (3.5-5.1) mEq/L Chloride 104 (98-107) mEq/L Carbon Dioxide 25 (21-32) mEq/L Anion Gap 15.3 H (5-15) BUN 16 (7-18) mg/dL Creatinine 1.2 H (0.55-1.02) mg/dL Est Cr Clr Drug Dosing 52.81 mL/min Estimated GFR (MDRD) 46 (>60) mL/min BUN/Creatinine Ratio 13.3 L (14-18) Glucose 102 (74-106) mg/dL Calcium 8.7 (8.5-10.1) mg/dL Total Bilirubin 0.5 (0.2-1.0) mg/dL AST 11 L (15-37) U/L ALT 25 (14-59) U/L Alkaline Phosphatase 60 (46-116) U/L Troponin I < 0.017 (0.00-0.056) ng/mL C-Reactive Protein <0.2 (<1.0) mg/dL Total Protein 7.4 (6.4-8.2) g/dl Albumin 3.9 (3.4-5.0) g/dl Globulin 3.5 gm/dL Albumin/Globulin Ratio 1.1 (1-2) - Re-Assessments/Exams Free Text/Narrative Re-Assessment/Exam: Patient is a 55-year-old female presenting to the emergency department with complaints of left arm and shoulder pain that started today. She cannot think of any known injury or any repetitive use, however she has been doing quite a bit of sewing. She does have a history of arthritis and states she cannot normally lift her arm over the level of her shoulder due to pain in that shoulder. She denies any significant chest pain or shortness of breath. She has no history of blood clots. I will do a cardiac work-up to rule out cardiac involvement. I have ordered CBC, CMP, CRP, troponin, chest x-ray, EKG. I will also do a D-dimer to look for possibility of blood clot in the extremity. I have ordered a x-ray of the shoulder as well. 07/08/20 21:38 Patient's work-up was grossly unremarkable. D-dimer and troponin are both normal. Chest x-ray is normal. There is no obvious bony abnormalities on her shoulder x-ray. EKG showed no acute ischemia. Patient only has 1 kidney so she cannot handle NSAIDs. I will send her home with a prescription for [place] for pain. This will be filled through the instrument. Discussed with patient that she may apply heat and/or ice for relief. If she still having significant discomfort left next week, she should follow-up with her primary care provider for further evaluation. Discharge instructions as documented. Departure - Departure Time of Disposition: 21:40 Disposition: Home, Self-Care 01 Condition: Good Clinical Impression: Arm pain, left - Discharge Information *PRESCRIPTION DRUG MONITORING PROGRAM REVIEWED*: Yes *COPY OF PRESCRIPTION DRUG MONITORING REPORT IN PATIENT EUGENE: No Instructions: Shoulder Pain, [id number] Referrals: Marianne France MD [Primary Care Provider] - Forms: ED Department Discharge Additional Instructions: You were seen in the emergency department today for pain to your left shoulder and down your left arm. Cardiac work-up was not completed and was found to be normal. You are not having a heart attack and you do not have a blood clot in your arm. As we discussed, this pain is likely related to your arthritis in your shoulder. You have been provided with a prescription for [place] for pain. Take this medication as prescribed. Recommend intermittent heat and ice over the area for comfort. If you are still experiencing substantial discomfort next week, would recommend follow-up with your primary care provider for further evaluation as needed. Return to ER as needed. Sepsis Event Note (ED) - Evaluation Sepsis Screening Result: No Definite Risk - Focused Exam Vital Signs: Vital Signs Temp Pulse Resp BP Pulse Ox 07/08/20 20:03 97.8 F 78 16 121/80 99 - My Orders Last 24 Hours: My Active Orders 07/08/20 20:19 Chest 2V [CR] Stat 07/08/20 20:20 Shoulder Comp Lt [CR] Stat - Assessment/Plan Last 24 Hours: My Active Orders 07/08/20 20:19 Chest 2V [CR] Stat 07/08/20 20:20 Shoulder Comp Lt [CR] Stat
--- NOTE | 2020-07-11 09:05 | CR ---
PROCEDURE INFORMATION: Exam: XR Chest, 2 Views Exam date and time: 07/08/2020 9:01 PM Age: 55 years old Clinical indication: Patient HX: Left arm pain, nki; Additional info: Prior exams scanned for your review TECHNIQUE: Imaging protocol: XR of the chest Views: 2 views. COMPARISON: CR Chest 1V Frontal 11/05/2015 8:35 PM FINDINGS: Tubes, catheters and devices: Electronic cardiac device overlies the lower left hemithorax. Lungs: Unremarkable. No consolidation. Pleural space: Unremarkable. No pleural effusion. No pneumothorax. Heart/Mediastinum: Unremarkable. No cardiomegaly. Bones/joints: Unremarkable. IMPRESSION: No acute cardiopulmonary disease. Thank you for allowing us to participate in the care of your patient. Dictated and Authenticated by: Jono Perea MD 07/08/2020 10:22 PM Central Time ([place] & [place]) [facility] ESTHER
--- NOTE | 2020-07-11 09:06 | CR ---
PROCEDURE INFORMATION: Exam: XR Left Shoulder Exam date and time: 07/08/2020 9:03 PM Age: 55 years old Clinical indication: Upper arm and shoulder; Right; Patient HX: Left arm pain onset today, nki; Additional info: Prior exams scanned for your review TECHNIQUE: Imaging protocol: XR Left shoulder. Views: 2 or more views. COMPARISON: No relevant prior studies available. FINDINGS: Bones/joints: Normal. Soft tissues: Normal. IMPRESSION: No acute findings. Thank you for allowing us to participate in the care of your patient. Dictated and Authenticated by: Jono Perea MD 07/08/2020 10:24 PM Central Time ([place] & [place]) [facility]
== END 2020-07-08 21:52 | disposition home or self-care (01) ==
LOC: JD.ED 19:49
DX: M25.512 Pain in left shoulder (principal); E78.00 Pure hypercholesterolemia, unspecified; I10 Essential (primary) hypertension; J44.9 Chronic obstructive pulmonary disease, unspecified; K21.9 Gastro-esophageal reflux disease without esophagitis; M19.90 Unspecified osteoarthritis, unspecified site; F31.9 Bipolar disorder, unspecified; F17.210 Nicotine dependence, cigarettes, uncomplicated; Z88.5 Allergy status to narcotic agent; Z88.8 Allergy status to other drugs, medicaments and biological substances; Z88.2 Allergy status to sulfonamides; Z79.899 Other long term (current) drug therapy; Z79.82 Long term (current) use of aspirin
CPT/HCPCS: 36415; 71046; 71046-26; 73030-26-LT; 73030-LT; 80053; 84484; 85025; 85379; 86140; 93005; 93010; 99282; 99284-25

== ENCOUNTER 2020-10-06 16:32 | Emergency (ER) | payer BC ==
--- NOTE | 2020-10-06 18:10 | EDM.PDOC ---
ED HPI GENERAL MEDICAL PROBLEM - General Chief Complaint: Chest Pain Stated Complaint: CHEST PAIN /SOB / Time Seen by Provider: 10/06/20 16:41 Source of Information: Reports: Patient, RN Notes Reviewed - History of Present Illness INITIAL COMMENTS - FREE TEXT/NARRATIVE: 55 yr old female comes in with chest discomfort that started yesterday, continue today. Mild dyspnea. No cough, fever or chills. Hx GERD but this does seem worse than usual. No recent nausea or vomiting. On omeprazole in addition to other meds. No hx CAD or diabetes. She does smoke. Middle Chest Pain Score (Numeric/FACES): 8 - Related Data Allergies Allergy/AdvReac Type Severity Reaction Status Date / Time morphine Allergy Severe Other Verified 10/06/20 16:44 hydrochlorothiazide AdvReac Severe Nausea Verified 10/06/20 16:44 oxycodone HCl [From Percocet] AdvReac Severe Nausea Verified 10/06/20 16:44 Sulfa (Sulfonamide AdvReac Severe Mouth Sores Verified 10/06/20 16:44 Antibiotics) varenicline tartrate AdvReac Severe Change Verified 10/06/20 16:44 [From Chantix] Mental Status Home Meds: Home Meds Acetaminophen [Tylenol Arthritis Pain] 2 tab PO BID 11/05/15 [History] LORazepam [Ativan] 1 mg PO BEDTIME 11/05/15 [History] Topiramate [Topamax] 150 mg PO BEDTIME 11/05/15 [History] atenoloL [Atenolol] 12.5 mg PO QPM 11/05/15 [History] Aspirin [Ecotrin EC] 81 mg PO DAILY 11/06/15 [History] Budesonide/Formoterol [Symbicort 80-4.5 MCG] 2 puff INH BID 11/06/15 [History] Ciprofloxacin HCl/Dexameth [Ciprodex Otic Suspension] 5 drop TOP BID 11/06/15 [History] Linaclotide [Linzess] 290 mcg PO DAILY 11/06/15 [History] Omeprazole 80 mg PO BEDTIME 11/06/15 [History] Tiotropium [Spiriva HandiHaler] 18 mcg INH DAILY 11/06/15 [History] guaiFEN/Phenyleph/Acetaminophn [Mucinex Sinus-Max Severe Cplt] 1 each PO BID PRN 11/06/15 [History] traZODone 75 mg PO BEDTIME 11/06/15 [History] DULoxetine [Cymbalta] 120 mg PO BEDTIME 10/06/20 [History] Ipratropium/Albuterol Sulfate [Iprat-Albut 0.5-3(2.5) mg/3 ml] 3 ml IH DAILY PRN 10/06/20 [History] Rosuvastatin Calcium 40 mg PO BEDTIME 10/06/20 [History] buPROPion [Wellbutrin] 75 mg PO BEDTIME 10/06/20 [History] busPIRone [Buspar] 15 mg PO DAILY 10/06/20 [History] Past Medical History HEENT History: Reports: Sinusitis Other HEENT History: 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 Cardiovascular History: Reports: High Cholesterol, Hypertension Other Cardiovascular History: mitral valve prolapse Respiratory History: Reports: Bronchitis, Recurrent, COPD Other Respiratory History: current smoker 2ppd Gastrointestinal History: Reports: Colon Polyp, GERD, Other (See Below) Other Gastrointestinal History: Barretts esophogus Genitourinary History: Reports: Other (See Below) Other Genitourinary History: renal insuffiency, she states she only has one kidney. 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: Musculoskeletal History: Reports: Osteoarthritis Neurological History: Reports: Headaches, Chronic Psychiatric History: Reports: Anxiety, Bipolar Other Psychiatric History: disassociate disorder Endocrine/Metabolic History: Reports: Diabetes, Type II, Obesity/BMI 30+, Vitamin D Deficiency Other Oncologic History: clear cell carcinoma of the left kidney - Infectious Disease History Infectious Disease History: Reports: Chicken Pox, MRSA - Past Surgical History HEENT Surgical History: Reports: Naso-Sinus Surgery, Other (See Below) Other HEENT Surgeries/Procedures: ear surgery x 3 GI Surgical History: Reports: Cholecystectomy, Colonoscopy Female Surgical History: Reports: Cervical Conization, Cervical Cryotherapy, Hysterectomy Other Female Surgeries/Procedures: left nephrectomy Social & Family History - Family History Family Medical History: No Pertinent Family History HEENT: Reports: Cataract Cardiac: Reports: Other (See Below) Other Cardiac Family History: several with heart attachs, one with mitral valve replacement and pacemaker Respiratory: Reports: Other (See Below) Other Respiratory Family Hisory: emphysema GI: Reports: None Musculoskeletal: Reports: Gout Neurological: Reports: Dementia Psychiatric: Reports: ADHD, Bipolar Endocrine/Metabolic: Reports: Diabetes, type II, Hyperthyroidism Oncologic: Reports: Other (See Below) Other Oncologic Family History: pt states several family members have had cancer unsure of what kind - Tobacco Use Tobacco Use Status *Q: Current Every Day Tobacco User Years of Tobacco use: 43 Packs/Tins Daily: 2 - Caffeine Use Caffeine Use: Reports: Coffee - Recreational Drug Use Recreational Drug Use: No ED ROS GENERAL - Review of Systems Review Of Systems: See Below Constitutional: Denies: Fever, Chills, Diaphoresis HEENT: Reports: No Symptoms Respiratory: Reports: Shortness of Breath, Cough (occasional) Cardiovascular: Reports: Chest Pain GI/Abdominal: Reports: Abdominal Pain (mild upper abd discomfort off and on). Denies: Hematochezia, Melena, Vomiting Musculoskeletal: Denies: Shoulder Pain, Arm Pain Skin: Reports: No Symptoms Neurological: Reports: No Symptoms ED EXAM, GENERAL - Physical Exam Exam: See Below General Appearance: Alert, No Apparent Distress Head: Atraumatic Neck: Supple Respiratory/Chest: No Respiratory Distress, Lungs Clear, Normal Breath Sounds Cardiovascular: Regular Rate, Rhythm GI/Abdominal: Tender (mild upper mid tenderness, remainder of abd soft and nontender) Back Exam: No: CVA Tenderness (L), CVA Tenderness (R) Extremities: No: Non-Tender, Leg Pain, Increased Warmth, Redness Neurological: Alert, Oriented, No Motor/Sensory Deficits Skin Exam: Warm, Dry, Normal Color #1 Interpretation EKG Date: 10/06/20 Rhythm: NSR [place]: Normal P-Wave: Present QRS: Normal ST-T: Other (t wave inversion and slight St depression V2-v4) Course - Vital Signs Last Recorded V/S: Last Vital Signs Temp 97.6 F 10/06/20 16:41 Pulse 76 10/06/20 19:00 Resp 20 10/06/20 19:00 BP 123/79 10/06/20 19:00 Pulse Ox 98 10/06/20 19:00 - Orders/Labs/Meds Labs: Laboratory Tests 10/06/20 10/06/20 Range/Units 16:45 16:45 WBC 7.74 (3.98-10.04) K/mm3 RBC 4.79 (3.98-5.22) M/mm3 Hgb 14.6 (11.2-15.7) gm/dl Hct 44.6 (34.1-44.9) % MCV 93.1 (79.4-94.8) fl MCH 30.5 (25.6-32.2) pg MCHC 32.7 (32.2-35.5) g/dl RDW Std Deviation 46.4 H (36.4-46.3) fL Plt Count 160 L (182-369) K/mm3 MPV 11.2 (9.4-12.3) fl Neut % (Auto) 62.9 (34.0-71.1) % Lymph % (Auto) 27.3 (19.3-51.7) % [place] % (Auto) 6.3 (4.7-12.5) % Eos % (Auto) 2.8 (0.7-5.8) Baso % (Auto) 0.4 (0.1-1.2) % Neut # (Auto) 4.87 (1.56-6.13) K/mm3 Lymph # (Auto) 2.11 (1.18-3.74) K/mm3 [place] # (Auto) 0.49 H (0.24-0.36) K/mm3 Eos # (Auto) 0.22 (0.04-0.36) K/mm3 Baso # (Auto) 0.03 (0.01-0.08) K/mm3 Sodium 142 (136-145) mEq/L Potassium 3.9 (3.5-5.1) mEq/L Chloride 105 (98-107) mEq/L Carbon Dioxide 23 (21-32) mEq/L Anion Gap 17.9 H (5-15) BUN 13 (7-18) mg/dL Creatinine 1.3 H (0.55-1.02) mg/dL Est Cr Clr Drug Dosing 46.99 mL/min Estimated GFR (MDRD) 42 (>60) mL/min BUN/Creatinine Ratio 10.0 L (14-18) Glucose 107 H (74-106) mg/dL Calcium 8.8 (8.5-10.1) mg/dL Total Bilirubin 0.6 (0.2-1.0) mg/dL AST 5 L (15-37) U/L ALT 27 (14-59) U/L Alkaline Phosphatase 60 (46-116) U/L Troponin I < 0.017 (0.00-0.056) ng/mL Total Protein 7.3 (6.4-8.2) g/dl Albumin 3.8 (3.4-5.0) g/dl Globulin 3.5 gm/dL Albumin/Globulin Ratio 1.1 (1-2) - Re-Assessments/Exams Free Text/Narrative Re-Assessment/Exam: 10/07/20 16:03 trop, other labs relatively nl. EKG did not show acute changes, CXR nl, No ectopy, sats good. discharge instr. as documented. Departure - Departure Time of Disposition: 19:03 Disposition: Home, Self-Care 01 Condition: Fair Clinical Impression: Atypical chest pain GERD (gastroesophageal reflux disease) Qualifiers: Esophagitis presence: esophagitis presence not specified Qualified Code(s): K21.9 - Gastro-esophageal reflux disease without esophagitis Instructions: Nonspecific Chest Pain, Adult Referrals: Marianne France MD [Primary Care Provider] - Forms: ED Department Discharge Additional Instructions: Continue current medications. Continue tums or maalox or mylanta as needed for stomach and chest discomfort. See Dr France next week for follow up. Call for appointment tomorrow. Return to ED as needed if symptoms worsening in any way. Sepsis Event Note (ED) - Evaluation Sepsis Screening Result: No Definite Risk
[2020-10-06 19:20] VITALS: BP 123/79; PULSE 76
--- NOTE | 2020-10-07 07:47 | CR ---
Chest: Portable view of the chest was obtained. Comparison: Prior chest x-ray of 07/08/20. Heart size and mediastinum are within normal limits. Lungs are clear with no acute parenchymal change. No acute osseous abnormality is appreciated. Impression: 1. Nothing acute is seen on portable chest x-ray. Diagnostic code #1
== END 2020-10-06 19:17 | disposition home or self-care (01) ==
LOC: JD.ED 16:32
DX: K21.9 Gastro-esophageal reflux disease without esophagitis (principal); E78.00 Pure hypercholesterolemia, unspecified; I10 Essential (primary) hypertension; J44.9 Chronic obstructive pulmonary disease, unspecified; M19.90 Unspecified osteoarthritis, unspecified site; E11.9 Type 2 diabetes mellitus without complications; F17.200 Nicotine dependence, unspecified, uncomplicated; E66.9 Obesity, unspecified; Z68.41 Body mass index [BMI] 40.0-44.9, adult; Z88.5 Allergy status to narcotic agent; Z88.8 Allergy status to other drugs, medicaments and biological substances; Z88.2 Allergy status to sulfonamides; Z79.82 Long term (current) use of aspirin
CPT/HCPCS: 36415; 71045; 71045-26; 80053; 84484; 85025; 93005; 93010; 99283; 99285-25

== ENCOUNTER 2021-02-01 15:27 | Emergency (ER) | payer BC ==
[2021-02-01 15:34] VITALS: PULSE 84
[2021-02-01] MEDS ORDERED: Sodium Chloride 0.9% 10 ML Syringe FLUSH PRN (15:50)
[2021-02-01] MEDS ORDERED: Nitroglycerin/D5W 25 MG/250 ML BOTTLE IV SCH (16:00)
--- NOTE | 2021-02-01 16:02 | EDM.PDOC ---
ED HPI GENERAL MEDICAL PROBLEM - General Chief Complaint: Chest Pain Stated Complaint: [facility] Time Seen by Provider: 02/01/21 15:30 Source of Information: Reports: Patient History Limitations: Reports: No Limitations - History of Present Illness INITIAL COMMENTS - FREE TEXT/NARRATIVE: 56-year-old female presents to the emergency department today with complaints of midsternal chest pain that started approximately 30 minutes prior to arrival. 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 She states the pain radiated into the middle of her back. She states she also had associated diaphoresis associated with this. She denied any nausea. She states the pressure then radiated into her left shoulder and left jaw. She also notes that she then developed a severe headache. She states she then took a sublingual nitroglycerin which did seem to help some. And called EMS. Once EMS arrived they did give her 4 baby aspirin and another sublingual nitroglycerin which she states dropped the pain down to a 1 out of 10. She complains of severe leg cramps she states she has never had this severe in the past. She denies any history of prior [place]. She states that she smokes 2 packs of cigarettes daily for the past 40+ years. When asked if she has diabetes she states 1 provider says she does not but another one does. She recently started seeing Prabha Nehemiah Gonzalez, and last saw her yesterday at the clinic for her initial visit to establish care. She states over the course the past couple days she has noted an increased cough with thick sputum production. She denies any recent fever, chills, nausea, vomiting, or diarrhea. She also has a history of cancer of the kidney for which she states they did a radical nephrectomy and she did not need to undergo chemotherapy or radiation. Denies any history of stroke or cancer. She has a history of gastroparesis. She denies any GERD type of symptoms however. Middle Chest Pain Score (Numeric/FACES): 1 - Related Data Allergies Allergy/AdvReac Type Severity Reaction Status Date / Time morphine Allergy Severe Other Verified 02/01/21 15:34 hydrochlorothiazide AdvReac Severe Nausea Verified 02/01/21 15:34 oxycodone HCl [From Percocet] AdvReac Severe Nausea Verified 02/01/21 15:34 Sulfa (Sulfonamide AdvReac Severe Mouth Sores Verified 02/01/21 15:34 Antibiotics) varenicline tartrate AdvReac Severe Change Verified 02/01/21 15:34 [From Chantix] Mental Status Home Meds: Home Meds Acetaminophen [Tylenol Arthritis Pain] 2 tab PO BID 11/05/15 [History] LORazepam [Ativan] 1 mg PO BEDTIME 11/05/15 [History] Topiramate [Topamax] 150 mg PO BEDTIME 11/05/15 [History] atenoloL [Atenolol] 12.5 mg PO QPM 11/05/15 [History] Aspirin [Ecotrin EC] 81 mg PO DAILY 11/06/15 [History] Budesonide/Formoterol [Symbicort 80-4.5 MCG] 2 puff INH BID 11/06/15 [History] Ciprofloxacin HCl/Dexameth [Ciprodex Otic Suspension] 5 drop TOP BID 11/06/15 [History] Linaclotide [Linzess] 290 mcg PO DAILY 11/06/15 [History] Omeprazole 80 mg PO BEDTIME 11/06/15 [History] Tiotropium [Spiriva HandiHaler] 18 mcg INH DAILY 11/06/15 [History] guaiFEN/Phenyleph/Acetaminophn [Mucinex Sinus-Max Severe Cplt] 1 each PO BID PRN 11/06/15 [History] traZODone 100 mg PO BEDTIME 11/06/15 [History] DULoxetine [Cymbalta] 120 mg PO BEDTIME 10/06/20 [History] Ipratropium/Albuterol Sulfate [Iprat-Albut 0.5-3(2.5) mg/3 ml] 3 ml NEB QID 10/06/20 [History] Rosuvastatin Calcium 40 mg PO BEDTIME 10/06/20 [History] buPROPion [Wellbutrin] 75 mg PO BEDTIME 10/06/20 [History] busPIRone [Buspar] 15 mg PO DAILY 10/06/20 [History] Nitroglycerin 0.4 mg SL ASDIRECTED 02/01/21 [History] Past Medical History HEENT History: Reports: Sinusitis Other HEENT History: 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 Cardiovascular History: Reports: High Cholesterol, Hypertension Other Cardiovascular History: mitral valve prolapse Respiratory History: Reports: Bronchitis, Recurrent, COPD Other Respiratory History: current smoker 2ppd Gastrointestinal History: Reports: Colon Polyp, GERD, Other (See Below) Other Gastrointestinal History: Barretts esophogus Genitourinary History: Reports: Other (See Below) Other Genitourinary History: renal insuffiency, she states she only has one kidney. 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: Musculoskeletal History: Reports: Osteoarthritis Neurological History: Reports: Headaches, Chronic Psychiatric History: Reports: Anxiety, Bipolar Other Psychiatric History: disassociate disorder Endocrine/Metabolic History: Reports: Diabetes, Type II, Obesity/BMI 30+, Vitamin D Deficiency Other Oncologic History: clear cell carcinoma of the left kidney - Infectious Disease History Infectious Disease History: Reports: Chicken Pox, MRSA - Past Surgical History HEENT Surgical History: Reports: Naso-Sinus Surgery, Other (See Below) Other HEENT Surgeries/Procedures: ear surgery x 3 GI Surgical History: Reports: Cholecystectomy, Colonoscopy Female Surgical History: Reports: Cervical Conization, Cervical Cryotherapy, Hysterectomy Other Female Surgeries/Procedures: left nephrectomy Social & Family History - Family History Family Medical History: No Pertinent Family History HEENT: Reports: Cataract Cardiac: Reports: Other (See Below) Other Cardiac Family History: several with heart attachs, one with mitral valve replacement and pacemaker Respiratory: Reports: Other (See Below) Other Respiratory Family Hisory: emphysema GI: Reports: None Musculoskeletal: Reports: Gout Neurological: Reports: Dementia Psychiatric: Reports: ADHD, Bipolar Endocrine/Metabolic: Reports: Diabetes, type II, Hyperthyroidism Oncologic: Reports: Other (See Below) Other Oncologic Family History: pt states several family members have had cancer unsure of what kind - Tobacco Use Tobacco Use Status *Q: Current Every Day Tobacco User Years of Tobacco use: 40 Packs/Tins Daily: 2 - Caffeine Use Caffeine Use: Reports: Coffee - Recreational Drug Use Recreational Drug Use: No ED ROS GENERAL - Review of Systems Review Of Systems: Comprehensive ROS is negative, except as noted in HPI. ED EXAM, GENERAL - Physical Exam Exam: See Below Exam Limited By: No Limitations General Appearance: Alert, WD/WN, No Apparent Distress Eye Exam: Bilateral Eye: PERRL Ears: Normal External Exam, Hearing Grossly Normal Nose: Normal Inspection Throat/Mouth: Normal Inspection, Normal Lips, Normal Voice, No Airway Compromise Head: Atraumatic, Normocephalic Neck: Normal Inspection, Supple Respiratory/Chest: No Respiratory Distress, No Accessory Muscle Use, Crackles (Scattered crackles noted throughout). No: Lungs Clear, Normal Breath Sounds Cardiovascular: Normal Peripheral Pulses, Regular Rate, Rhythm, No Edema, No Murmur Peripheral Pulses: 2+: Radial (L), Radial (R) GI/Abdominal: Normal Bowel Sounds, Soft, Non-Tender, No Distention (Female) Exam: Deferred Rectal (Female) Exam: Deferred Back Exam: Normal Inspection, Full Range of Motion Extremities: Normal Inspection, Normal Range of Motion, Non-Tender, No Pedal Edema, Normal Capillary Refill, Other (Complains of severe cramps to her legs) Neurological: Alert, Oriented, Normal Cognition Psychiatric: Normal Affect, Normal Mood Skin Exam: Warm, Dry, Intact, Normal Color, No Rash Lymphatic: No Adenopathy #1 Interpretation EKG Date: 02/01/21 Time: 15:32 Rhythm: NSR Rate (Beats/Min): 85 [place]: Normal P-Wave: Present QRS: Normal ST-T: Normal QT: Normal EKG Interpretation Comments: Per Dr. Escalante interpretation: Sinus rhythm at 85/min; biatrial enlargement; decreased voltage precordial leads; early R wave transitionconsider left septal hypertrophy; QTC is mildly prolonged Course - Vital Signs Text/Narrative:: Upon assessment the patient states that her chest pain has resolved. She denies any headache she states that has resolved as well. Lung sounds are coarse throughout. Patient does admit to increasing chest discomfort once I palpate her left chest wall. I have ordered labs to include a CBC, CMP, CRP, troponin, D-dimer, lipase, magnesium level. She will have a portable view of the chest and abdomen due to her history of gastroparesis. Consulted with Dr. Escalante and he recommends I start a nitro drip on the patient. She has already received 4 baby aspirin in route to the hospital. Last Recorded V/S: Last Vital Signs Temp 96.3 F L 02/01/21 15:30 Pulse 84 02/01/21 15:30 Resp 18 02/01/21 15:30 BP 106/72 02/01/21 17:35 Pulse Ox 93 L 02/01/21 15:30 - Orders/Labs/Meds Orders: Active Orders 24 hr Category Date Time Status EKG Documentation Completion [RC] STAT Care 02/01/21 15:50 Active Nitroglycerin/D5W [Nitroglycerin 25 MG/D5W 250 ML] Med 02/01/21 16:00 Active 25 mg in 250 ml IV TITRATE Sodium Chloride 0.9% [Saline Flush] Med 02/01/21 15:50 Active 10 ml FLUSH ASDIRECTED PRN Saline Lock Insert [OM.PC] Stat Oth 02/01/21 15:50 Ordered Medication Orders Nitroglycerin/Dextrose (Nitroglycerin 25 Mg/D5w 250 Ml) 25 mg in 250 mls @ 6 mls/hr IV TITRATE BISHNU; Protocol Last Admin: 02/01/21 16:10 Dose: 10 mcg/min, 6 mls/hr Documented by: JOSE Sodium Chloride (Sodium Chloride 0.9% 10 Ml Syringe) 10 ml FLUSH ASDIRECTED PRN PRN Reason: Keep Vein Open Last Admin: 02/01/21 15:55 Dose: 10 ml Documented by: JOSE Labs: Laboratory Tests 02/01/21 02/01/21 02/01/21 Range/Units 16:20 16:20 16:20 WBC 7.93 (3.98-10.04) K/mm3 RBC 4.66 (3.98-5.22) M/mm3 Hgb 14.3 (11.2-15.7) gm/dl Hct 43.4 (34.1-44.9) % MCV 93.1 (79.4-94.8) fl MCH 30.7 (25.6-32.2) pg MCHC 32.9 (32.2-35.5) g/dl RDW Std Deviation 49.0 H (36.4-46.3) fL Plt Count 160 L (182-369) K/mm3 MPV 10.8 (9.4-12.3) fl Neut % (Auto) 65.0 (34.0-71.1) % Lymph % (Auto) 25.3 (19.3-51.7) % Castro % (Auto) 7.3 (4.7-12.5) % Eos % (Auto) 1.8 (0.7-5.8) Baso % (Auto) 0.5 (0.1-1.2) % Neut # (Auto) 5.15 (1.56-6.13) K/mm3 Lymph # (Auto) 2.01 (1.18-3.74) K/mm3 Castro # (Auto) 0.58 H (0.24-0.36) K/mm3 Eos # (Auto) 0.14 (0.04-0.36) K/mm3 Baso # (Auto) 0.04 (0.01-0.08) K/mm3 D-Dimer, Quantitative 0.35 (0.19-0.50) mg/L Sodium 143 (136-145) mEq/L Potassium 3.5 (3.5-5.1) mEq/L Chloride 107 (98-107) mEq/L Carbon Dioxide 25 (21-32) mEq/L Anion Gap 14.5 (5-15) BUN 18 (7-18) mg/dL Creatinine 1.3 H (0.55-1.02) mg/dL Est Cr Clr Drug Dosing 46.43 mL/min Estimated GFR (MDRD) 42 (>60) mL/min BUN/Creatinine Ratio 13.8 L (14-18) Glucose 137 H (70-99) mg/dL Calcium 8.3 L (8.5-10.1) mg/dL Magnesium 2.0 (1.8-2.4) mg/dL Total Bilirubin 0.4 (0.2-1.0) mg/dL AST 14 L (15-37) U/L ALT 24 (14-59) U/L Alkaline Phosphatase 64 (46-116) U/L Troponin I < 0.017 (0.00-0.056) ng/mL C-Reactive Protein <0.2 (<1.0) mg/dL Total Protein 6.7 (6.4-8.2) g/dl Albumin 3.4 (3.4-5.0) g/dl Globulin 3.3 gm/dL Albumin/Globulin Ratio 1.0 (1-2) Lipase 106 (73-393) U/L 02/01/21 Range/Units 18:55 WBC (3.98-10.04) K/mm3 RBC (3.98-5.22) M/mm3 Hgb (11.2-15.7) gm/dl Hct (34.1-44.9) % MCV (79.4-94.8) fl MCH (25.6-32.2) pg MCHC (32.2-35.5) g/dl RDW Std Deviation (36.4-46.3) fL Plt Count (182-369) K/mm3 MPV (9.4-12.3) fl Neut % (Auto) (34.0-71.1) % Lymph % (Auto) (19.3-51.7) % Castro % (Auto) (4.7-12.5) % Eos % (Auto) (0.7-5.8) Baso % (Auto) (0.1-1.2) % Neut # (Auto) (1.56-6.13) K/mm3 Lymph # (Auto) (1.18-3.74) K/mm3 [place] # (Auto) (0.24-0.36) K/mm3 Eos # (Auto) (0.04-0.36) K/mm3 Baso # (Auto) (0.01-0.08) K/mm3 D-Dimer, Quantitative (0.19-0.50) mg/L Sodium (136-145) mEq/L Potassium (3.5-5.1) mEq/L Chloride (98-107) mEq/L Carbon Dioxide (21-32) mEq/L Anion Gap (5-15) BUN (7-18) mg/dL Creatinine (0.55-1.02) mg/dL Est Cr Clr Drug Dosing mL/min Estimated GFR (MDRD) (>60) mL/min BUN/Creatinine Ratio (14-18) Glucose (70-99) mg/dL Calcium (8.5-10.1) mg/dL Magnesium (1.8-2.4) mg/dL Total Bilirubin (0.2-1.0) mg/dL AST (15-37) U/L ALT (14-59) U/L Alkaline Phosphatase (46-116) U/L Troponin I < 0.017 (0.00-0.056) ng/mL C-Reactive Protein (<1.0) mg/dL Total Protein (6.4-8.2) g/dl Albumin (3.4-5.0) g/dl Globulin gm/dL Albumin/Globulin Ratio (1-2) Lipase (73-393) U/L Meds: Medications Generic Name Dose Route Start Last Admin Trade Name Freq PRN Reason Stop Dose Admin Nitroglycerin/Dextrose 25 mg in 250 mls @ 6 mls/hr 02/01/21 16:00 02/01/21 16:10 Nitroglycerin 25 Mg/D5w 250 Ml IV 10 mcg/min TITRATE BISHNU 6 mls/hr Administration Protocol 10 MCG/MIN Sodium Chloride 10 ml 02/01/21 15:50 02/01/21 15:55 Sodium Chloride 0.9% 10 Ml Syringe FLUSH 10 ml ASDIRECTED PRN Administration Keep Vein Open Discontinued Medications Generic Name Dose Route Start Last Admin Trade Name Freq PRN Reason Stop Dose Admin Potassium Chloride 40 meq 02/01/21 17:23 02/01/21 17:35 Potassium Chloride 20 Meq Tab.Er PO 02/01/21 17:24 40 meq ONETIME ONE Administration - Re-Assessments/Exams Free Text/Narrative Re-Assessment/Exam: 02/01/21 16:32 Radiologist impression PA view of the chest. Heart size and mediastinum are within normal limits. Lungs are clear with no acute parenchymal change. No acute osseous abnormality is seen. Prior resection of the distal right clavicle is seen which is a chronic finding. Radiologist impression supine view of the abdomen: Numerous surgical clips are seen along the left side of the abdomen as well as within the right abdomen. Bowel gas pattern is normal. No abnormal calcifications or soft tissue abnormality is seen. Bony structures show nothing acute. 02/01/21 18:28 Hematology reveals a WBC of 7.93, hemoglobin 14.3, hematocrit 43.4, platelet count 160, D-dimer 0.35 Chemistry reveals a sodium of 143, potassium 3.5, anion gap 14.5, BUN 18, creatinine 1.3, glucose 137, magnesium 2.0, AST 14, ALT 24, alk phos 64, troponin less than 0.017, C-reactive protein 0.2, lipase 106 I have ordered for the patient to receive 40 mEq of potassium orally x1 dose. Creatinine is slightly elevated at 1.3 however I have looked into her previous records and ER visits and this seems about normal for her. I would like to repeat the troponin III hours from initial draw. I discussed this with the p shani and she initially had requested to leave the emergency department and come back. I discussed that this was not a good idea as something could happen within that timeframe. She agreed to stay. We will recheck the troponin at 1850. I have discontinued the nitro drip. 02/01/21 19:42 This repeat troponin comes back less than 0.017. Patient will be discharged home. Departure - Departure Time of Disposition: 19:43 Disposition: Home, Self-Care 01 Condition: Good Clinical Impression: Atypical chest pain Instructions: Nonspecific Chest Pain, Adult, [id number] Referrals: Gauri Barrios, [facility] [Primary Care Provider] - Forms: ED Department Discharge Additional Instructions: You were seen in the emergency department today with complaints of chest pain. Labs, EKG and a chest x-ray were all completed. These were all essentially unremarkable. Repeat troponin was completed 3 hours after initial troponin is still remained negative. There was no cause found for your chest pain that started today. Recommend that you follow-up with Prabha Barrios late this week or early next week. Should your condition worsen or change, do not hesitate returning to the emergency department. Sepsis Event Note (ED) - Evaluation Sepsis Screening Result: No Definite Risk - Focused Exam Vital Signs: Vital Signs Temp Pulse Resp BP Pulse Ox 02/01/21 17:35 106/72 02/01/21 16:30 115/97 H 02/01/21 15:30 96.3 F L 84 18 116/64 93 L - My Orders Last 24 Hours: My Active Orders 02/01/21 15:50 EKG Documentation Completion [RC] STAT Sodium Chloride 0.9% [Saline Flush] 10 ml FLUSH ASDIRECTED PRN Saline Lock Insert [OM.PC] Stat 02/01/21 16:00 Nitroglycerin/D5W [Nitroglycerin 25 MG/D5W 250 ML] 25 mg in 250 ml IV TITRATE - Assessment/Plan Last 24 Hours: My Active Orders 02/01/21 15:50 EKG Documentation Completion [RC] STAT Sodium Chloride 0.9% [Saline Flush] 10 ml FLUSH ASDIRECTED PRN Saline Lock Insert [OM.PC] Stat 02/01/21 16:00 Nitroglycerin/D5W [Nitroglycerin 25 MG/D5W 250 ML] 25 mg in 250 ml IV TITRATE
--- NOTE | 2021-02-01 16:23 | CR ---
Chest: PA view of the chest was obtained. Comparison: Prior chest x-ray of 10/06/20. Heart size and mediastinum are within normal limits. Lungs are clear with no acute parenchymal change. No acute osseous abnormality is seen. Prior resection of the distal right clavicle is seen which is a chronic finding. Impression: 1. Nothing acute is seen on PA chest x-ray. Diagnostic code #2
--- NOTE | 2021-02-01 16:27 | CR ---
Abdomen: Supine view of the abdomen was obtained. Comparison: No prior plain film study is available, prior CT abdomen and pelvis study of 01/04/18 is available. Numerous surgical clips are seen along the left side of the abdomen as well as within the upper right abdomen. Bowel gas pattern is normal. No abnormal calcifications or soft tissue abnormality is seen. Bony structures show nothing acute. Impression: 1. Surgical clips. 2. Nothing acute is appreciated on supine abdominal study. Diagnostic code #2
[2021-02-01] MEDS ORDERED: Potassium Chloride 20 MEQ Tab.ER PO ONE (17:23)
[2021-02-01 17:35] VITALS: BP 106/72
== END 2021-02-01 19:47 | disposition home or self-care (01) ==
LOC: JD.ED 15:27
DX: R07.2 Precordial pain (principal); R07.89 Other chest pain; E78.00 Pure hypercholesterolemia, unspecified; I10 Essential (primary) hypertension; J44.9 Chronic obstructive pulmonary disease, unspecified; E11.9 Type 2 diabetes mellitus without complications; E66.9 Obesity, unspecified; Z68.30 Body mass index [BMI] 30.0-30.9, adult; K21.9 Gastro-esophageal reflux disease without esophagitis; Z79.899 Other long term (current) drug therapy; Z88.2 Allergy status to sulfonamides; Z88.6 Allergy status to analgesic agent; Z88.5 Allergy status to narcotic agent
CPT/HCPCS: 36415; 71045; 74018; 80053; 83690; 83735; 84484; 85025; 85379; 86140; 93005; 96365; 99285; A9270; J3490; 93010

== ENCOUNTER 2022-06-18 11:11 | Emergency (ER) | payer BC, MEDICARE ==
[2022-06-18] MEDS ORDERED: Sodium Chloride 0.9% 10 ML Syringe FLUSH PRN (11:35)
[2022-06-18 14:38] VITALS: BP 107/61; PULSE 85
== END 2022-06-18 14:37 | disposition home or self-care (01) ==
LOC: JD.ED 11:11
DX: R07.9 Chest pain, unspecified (principal); E78.00 Pure hypercholesterolemia, unspecified; I10 Essential (primary) hypertension; K21.9 Gastro-esophageal reflux disease without esophagitis; J44.9 Chronic obstructive pulmonary disease, unspecified; M19.90 Unspecified osteoarthritis, unspecified site; E11.9 Type 2 diabetes mellitus without complications; E66.9 Obesity, unspecified; Z68.36 Body mass index [BMI] 36.0-36.9, adult; Z72.0 Tobacco use; Z88.8 Allergy status to other drugs, medicaments and biological substances; Z88.2 Allergy status to sulfonamides; Z88.5 Allergy status to narcotic agent; Z79.82 Long term (current) use of aspirin; Z79.899 Other long term (current) drug therapy
CPT/HCPCS: 36415; 71045; 80053; 83735; 83880; 84484; 85025; 85610; 85730; 93005; 99285; J3490